=== PATIENT | male | born 1975 ===

== ENCOUNTER 2022-12-09 23:38 | Emergency (ER) | payer SELFPAY ==
[~2022-12-09] VITALS: Ht 170.2 cm; Wt 100.0 kg
[2022-12-10] MEDS ORDERED: IBUPROFEN TABLET 200 MG TAB PO ONE
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
[2022-12-10 02:15] LABS: BASOPHILS % (AUTO) 0 % (0-10); EOSINOPHILS # (AUTO) 0.3 10^3/uL (0.0-0.3); EOSINOPHILS % (AUTO) 2 % (0-10); HEMATOCRIT 40 % (40-54); HEMOGLOBIN 13.9 g/dL (13.3-17.7); LYMPHOCYTES # (AUTO) 2.4 10^3/uL (1.0-4.0); LYMPHOCYTES % (AUTO) 23 % (12-44); MEAN CORPUSCULAR HEMOGLOBIN 30 pg (25-34); MEAN CORPUSCULAR HGB CONC 35 g/dL (32-36); MEAN CORPUSCULAR VOLUME 86 fL (80-99); MEAN PLATELET VOLUME 9.1 fL (9.0-12.2); MONOCYTES # (AUTO) 0.7 10^3/uL (0.0-1.0); MONOCYTES % (AUTO) 7 % (0-12); NEUTROPHILS # (AUTO) 7.1 10^3/uL (1.8-7.8); NEUTROPHILS % (AUTO) 67 % (42-75); PLATELET COUNT 193 10^3/uL (130-400); WHITE BLOOD COUNT 10.5 10^3/uL (4.3-11.0)
[2022-12-10 02:26] LABS: ALBUMIN 4.3 GM/DL (3.2-4.5); POTASSIUM 3.8 MMOL/L (3.6-5.0)
[2022-12-10 02:27] LABS: CALCIUM 9.1 MG/DL (8.5-10.1)
[2022-12-10 02:28] LABS: INR 1.1 (0.8-1.4); PROTHROMBIN TIME PATIENT 14.6 SEC (12.2-14.7); TOTAL PROTEIN 7.3 GM/DL (6.4-8.2)
[2022-12-10 02:30] LABS: BILIRUBIN,TOTAL 0.8 MG/DL (0.1-1.0)
[2022-12-10 02:32] LABS: CREATININE SERUM 0.72 MG/DL (0.60-1.30)
[2022-12-10] MEDS ORDERED: cefTRIAXone 1 GM PRE-MIX 50 ML IV STA (02:51)
[2022-12-10] MEDS ORDERED: RT-ALBUTEROL HFA 8.5 GM INHALER IH STA (02:51)
[2022-12-10] MEDS ORDERED: AZITHROMYCIN 250 MG TAB (ZITHROMAX) PO STA (02:51)
[2022-12-10] MEDS ORDERED: AZIT250T12 PO (03:03)
[2022-12-10] MEDS ORDERED: CEFD300C3 PO (03:03)
[2022-12-10 04:15] VITALS: BP 147/92
--- NOTE | 2022-12-10 06:04 | Diagnostic Imaging Report ---
INDICATION: Cough and fever. PA and lateral chest. FINDINGS: There is cardiomegaly with pulmonary vascular congestion. There are bilateral perihilar alveolar infiltrates with some focal consolidation in the right upper lobe. This could be pulmonary edema but pneumonia cannot be excluded. IMPRESSION: Congestive heart failure with probable superimposed pneumonia on the right. Dictated by: Dictated on workstation # [id number]
== END 2022-12-10 04:15 | disposition home or self-care (01) ==
LOC: EDUNIT# 23:38 → ER 23:42
DX: J18.9 Pneumonia, unspecified organism (principal); Z20.822 Contact with and (suspected) exposure to COVID-19
CPT/HCPCS: 36415; 71046; 80053; 83605; 83880; 85025; 85610; 85730; 86141; 87040; 87636

== ENCOUNTER 2022-12-23 20:14 | Emergency (ER) | payer SELFPAY ==
[~2022-12-23] VITALS: Ht 167.7 cm; Wt 103.4 kg
[~2022-12-23 20:14] MED LIST: AZIT250T12 PO; CEFD300C3 PO
[2022-12-23] MEDS ORDERED: NS IV 1000 ML 1,000 ML IV STA (20:44)
--- NOTE | 2022-12-23 20:48 | ED Cough/URI ---
General Chief Complaint: Respiratory Problems Stated Complaint: PNEUMONIA Nursing Triage Note: PT AMB TO RM 10, [facility] CONTACTED FOR TRIAGE. PER [facility] PT REPORTS HE WAS DX W PNA ON 12/09/22, STATES X3 DAYS HE HAS BEEN EXPERIENCING SOA W EXERTION, DIFFICULTY COUGHING, INABILITY TO LIE FLAT, AND CP. PT A&OX4. Source: patient Exam Limitations: no limitations History of Present Illness Date Seen by Provider: Dec 23, 2022 Time Seen by Provider: 20:47 Allergies and Home Medications Allergies Coded Allergies: No Known Drug Allergies (Unverified , 12/09/22) Patient Home Medication List Home Medication List Reviewed: Yes Albuterol Sulfate (Ventolin Hfa) 1 Puff Puff, 2 PUFF INH Q4H Prescribed by: JOHNNY BURKS on 12/23/222301 Amoxicillin/Potassium Clav (Amox Tr-K Clv 875-125 mg Tab) 875 Mg-125 Mg Tablet, 1 EACH PO BID Prescribed by: JOHNNY BURKS on 12/23/222301 Azithromycin (Azithromycin) 250 Mg Tablet, 250 MG PO DAILY Prescribed by: GLORIA VALENTINE on 12/10/22302 Azithromycin (Azithromycin) 250 Mg Tablet, 250 MG PO DAILY Prescribed by: JOHNNY BURKS on 12/23/222301 Cefdinir (Cefdinir) 300 Mg Capsule, 300 MG PO BID Prescribed by: GLORIA VALENTINE on 12/10/22302 Review of Systems Review of Systems Constitutional: chills; No diaphoresis; fever, malaise, weakness EENTM: No ear pain, No blurred vision, No hoarseness, No mouth pain, No mouth swelling Respiratory: cough, short of breath Cardiovascular: chest pain; No edema Gastrointestinal: No abdominal pain, No diarrhea, No nausea, No vomiting Genitourinary: No decreased output, No discharge Musculoskeletal: No back pain, No joint pain Skin: No change in color, No change in hair/nails All Other Systems Reviewed Negative Unless Noted: Yes Past Wxllewa-Vhscab-Iuniwu Hx Patient Social History Tobacco Use?: Yes Tobacco type used: Cigarettes Smoking Status: Current Someday Smoker Use of E-Cig and/or Vaping dev: No Substance use?: No Alcohol Use?: Yes Alcohol type: Beer Alcohol Frequency: Once in a while Immunizations Up To Date First/Initial COVID19 Vaccinat: 2020 Second COVID19 Vaccination Fredis: 2020 Third COVID19 Vaccination Date: NONE 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 oz. kg; 36.00 BMI Method: General Appearance: WD/WN, no apparent distress Eyes: Bilateral Eye Normal Inspection, Bilateral Eye PERRL, Bilateral Eye EOMI HEENT: PERRL/EOMI, normal ENT inspection, TMs normal, pharynx normal Neck: non-tender, full range of motion, supple Respiratory: lungs clear, normal breath sounds, no respiratory distress, no accessory muscle use, other (Anterior chest wall tenderness.) Cardiovascular: regular rate, rhythm, no edema, no gallop, no JVD Gastrointestinal: normal bowel sounds, non tender, soft, no organomegaly, no pulsatile mass Extremities: normal range of motion, non-tender, normal inspection, no pedal edema, no calf tenderness Neurologic/Psychiatric: aix administrator II-XII nml as tested, no motor/sensory deficits, alert, normal mood/affect, oriented x 3 Skin: normal color, warm/dry Progress/Results/Core Measures Suspected Sepsis SIRS Temperature: Pulse: 102 Respiratory Rate: 20 Laboratory Tests 12/23/22 20:35: White Blood Count 7.3 Blood Pressure 149 /112 Mean: 124 Laboratory Tests 12/23/22 20:35: Creatinine 0.79, Platelet Count 231, Total Bilirubin 0.6 Results/Orders Lab Results Laboratory Tests Test 12/23/22 20:35 12/23/22 22:51 Range/Units White Blood Count 7.3 4.3-11.0 10^3/uL Red Blood Count 4.29 L 4.30-5.52 10^6/uL Hemoglobin 12.8 L 13.3-17.7 g/dL Hematocrit 37 L 40-54 % Mean Corpuscular Volume 86 80-99 fL Mean Corpuscular Hemoglobin 30 25-34 pg Mean Corpuscular Hemoglobin Concent 35 32-36 g/dL Red Cell Distribution Width 12.4 10.0-14.5 % Platelet Count 231 130-400 10^3/uL Mean Platelet Volume 9.5 9.0-12.2 fL Immature Granulocyte % (Auto) 0 % Neutrophils (%) (Auto) 68 42-75 % Lymphocytes (%) (Auto) 23 12-44 % Monocytes (%) (Auto) 7 0-12 % Eosinophils (%) (Auto) 3 0-10 % Basophils (%) (Auto) 0 0-10 % Neutrophils # (Auto) 4.9 1.8-7.8 10^3/uL Lymphocytes # (Auto) 1.6 1.0-4.0 10^3/uL Monocytes # (Auto) 0.5 0.0-1.0 10^3/uL Eosinophils # (Auto) 0.2 0.0-0.3 10^3/uL Basophils # (Auto) 0.0 0.0-0.1 10^3/uL Immature Granulocyte # (Auto) 0.0 0.0-0.1 10^3/uL Sodium Level 138 135-145 MMOL/L Potassium Level 3.7 3.6-5.0 MMOL/L Chloride Level 108 H 98-107 MMOL/L Carbon Dioxide Level 19 L 21-32 MMOL/L Anion Gap 11 5-14 MMOL/L Blood Urea Nitrogen 13 7-18 MG/DL Creatinine 0.79 0.60-1.30 MG/DL Estimat Glomerular Filtration Rate 112 BUN/Creatinine Ratio 16 Glucose Level 309 H 70-105 MG/DL Calcium Level 8.7 8.5-10.1 MG/DL Corrected Calcium 8.8 8.5-10.1 MG/DL Total Bilirubin 0.6 0.1-1.0 MG/DL Aspartate Amino Transf (AST/SGOT) 27 5-34 U/L Alanine Aminotransferase (ALT/SGPT) 27 0-55 U/L Alkaline Phosphatase 107 40-136 U/L Troponin I < 0.028 <0.028 NG/ML C-Reactive Protein High Sensitivity 1.51 H 0.00-0.50 MG/DL B-Type Natriuretic Peptide 295.6 H <100.0 PG/ML Total Protein 7.0 6.4-8.2 GM/DL Albumin 3.9 3.2-4.5 GM/DL Influenza Type A (RT-PCR) Not Detected Not Detecte Influenza Type B (RT-PCR) Not Detected Not Detecte SARS-CoV-2 RNA (RT-PCR) Not Detected Not Detecte Glucometer 259 H 70-110 MG/DL My Orders Orders - JULES ERICKSON PA Cbc With Automated Diff (12/23/22 20:44) Comprehensive Metabolic Panel (12/23/22 20:44) Bnp [place] (12/23/22 20:44) Troponin I Boundary (12/23/22 20:44) Ekg Tracing (12/23/22 20:44) Covid 19 Inhouse Test (12/23/22 20:44) Influenza A And B By Pcr (12/23/22 20:44) Chest 1 View, Ap/Pa Only (12/23/22 20:44) Hs C Reactive Protein (12/23/22 20:44) Ns Iv 1000 Ml (Sodium Chloride 0.9%) (12/23/22 20:44) Ct Angio Chest W (R/O Pe) (12/23/22:23) Iohexol Injection (Omnipaque 350 Mg/Ml 1 (12/23/22 21:30) Received Contrast (Hold Metformin- Contr (12/23/22 21:30) Ns (Ivpb) (Sodium Chloride 0.9% Ivpb Bag (12/23/22 21:30) Morphine Injection (Morphine Injection (12/23/22 22:31) Albuterol/Ipra Inhalation Soln (Duoneb I (12/23/22 22:31) Ceftriaxone 1 Gm Pre-Mix (Rocephin 1 Gm (12/23/22 22:48) Azithromycin Tablet (Zithromax Tablet) (12/23/22 22:57) Ekg Tracing (12/23/22 21:09) Medications Given in ED Vital Signs/I&O 12/23/22 12/23/22 20:23 23:40 Temp 36.6 37.0 Pulse 102 107 Resp 20 24 B/P (MAP) 149/112 (124) 144/105 Pulse Ox 96 94 O2 Delivery Room Air Room Air Capillary Refill : Less Than 3 Seconds Blood Pressure Mean: 124 ECG Comment Sinus tachycardia, 100 bpm, QRS duration 117 MS, QTc 465 MS. Incomplete right bundle branch block, moderate T wave in reality and V3 V4. Departure Communication (PCP) Reviewed previous ER visits, H&P, lab testing. Patient was seen here December 09 diagnosed with pneumonia. Patient found to have a slight elevated BNP 196. No history of CHF, coronary artery disease. Patient with similar symptoms over the past 3 days. States this feels very similar to when he had pneumonia. Was discharged with cefdinir and azithromycin at his last visit with improvement of his pneumonia. Denies of any recent travels. Denies night sweats, weight loss. Denies of any leg swelling. Reports substernal chest discomfort with pain on palpation for the past three days. This appears to be worse with the cough. Patient was slightly hypertensive 114/102. No history of hypertension according to patient. He was afebrile. Slightly tachycardic at 102. CBC, CMP, troponin, BNP, chest x-ray, EKG. No history of PE. Differential diagnosis of pneumonia, viral syndrome, coronary artery disease, CHF. EKG sinus tachycardia. Patient is afebrile with normal white blood count. Patient was not tachypneic or hypoxic. did not meet SIRS criteria. Does report some shortness of breath with walking and lying down. No known cardiac history. Denies history of CHF or coronary artery disease. During lung auscultation, I did not note any significant wheezing but decreased diminished breath sounds. Patient was given nebulizer DuoNeb breathing treatment with improvement of his chest pain and lung sounds. Patient was given a dose of morphine for his chest pain as well. CBC unremarkable. Chemistry showed a blood sugar 309. Patient was started on a liter of fluid. Improvement with an Accu-Chek of 259. No known history of diabetes. Chest x-ray concerning for cardiomegaly with moderate congesting suggesting heart failure. Troponin negative. BNP slightly elevated 295. Slight increase from December 09. Bilateral consolidations concerning for pneumonia. It was recommended further evaluation with CT scan because of similar pattern on December 09. Due to the tachycardia, CT angio of the chest was ordered to rule out PE versus pneumonia versus pleural effusion. CT angio of the chest shows extensive 5 lobe alveolar infiltrate. Matted type lymphadenopathy versus inflammatory process in the hilum and subcranial region. Borderline cardiomegaly with small pericardial effusion. Negative for PE, aneurysm. gallbladder is nondistended but does appear to have wall thickening. he has no right upper quadrant tenderness. Patient has no right upper quadrant tenderness. patient appears better after the breathing treatment. Due to the extensive pneumonia, slightly tachycardic and oxygen between 93 to 95% discussed observation with IV antibiotics. Patient states he would rather go home. I do feel patient has some mild CHF component due to uncontrolled hypertension versus pneumonia. Patient was not started on a diuretic. Recommend cardiology outpatient follow-up. Patient will be discharged with Augmentin and azithromycin. Patient was given dose of Rocephin here. Provided albuterol inhaler. Recommend follow-up with your PCP for blood sugar and elevated blood pressure reading. no specific lower extremity swelling noted on exam suggesting CHF exacerbation. No pitting edema. Patient states he feels better and would rather go home. Discussed if symptoms worsen such as increased cough, shortness of breath, chest pain to return back to ED for further evaluation for the pne umonia. If pneumonia progresses may need further evaluation with pulmonology, sputum production. Impression Primary Impression: Pneumonia Additional Impressions: Cardiomegaly Hyperglycemia Disposition: HOME, SELF-CARE Condition: Stable Departure-Patient Inst. Decision time for Depature: 23:00 Referrals: [facility] [place],LOCAL PHYSICIAN (PCP) Primary Care Physician Patient Instructions: Pneumonia, Child (DC) Add. Discharge Instructions: Take antibiotics as prescribed. Recommend following up with your primary care physician 2 to 3 days for reevaluation. Recommend following up with cardiology for further evaluation of the cardiomegaly. Recommend follow-up with elevated blood sugar. Recommend following up with blood pressure. If any worsening shortness of breath or chest pain to return back to ED All discharge instructions reviewed with patient and/or family. Voiced understanding. Scripts Azithromycin (Azithromycin) 250 Mg Tablet 250 MG PO DAILY for 4 Days, #4 TAB Prov: JULES ERICKSON 12/23/22 Albuterol Sulfate (VENTOLIN HFA) 1 Puff Puff 2 PUFF INH Q4H, #1 EA 1 PUFF = 90 MCG Prov: JULES ERICKSON 12/23/22 Amoxicillin/Potassium Clav (Amox Tr-K Clv 875-125 mg Tab) 875 Mg-125 Mg Tablet 1 EACH PO BID for 7 Days, #14 TAB Prov: JULES ERICKSON 12/23/22 Work/School Note: Work Release Form Date Seen in the Emergency Department: Dec 23, 2022 Return to Work: Dec 28, 2022 JULES ERICKSON Dec 23, 2022 20:47
[2022-12-23 21:00] LABS: BASOPHILS % (AUTO) 0 % (0-10); EOSINOPHILS # (AUTO) 0.2 10^3/uL (0.0-0.3); EOSINOPHILS % (AUTO) 3 % (0-10); HEMATOCRIT 37 % (40-54); HEMOGLOBIN 12.8 g/dL (13.3-17.7); LYMPHOCYTES # (AUTO) 1.6 10^3/uL (1.0-4.0); LYMPHOCYTES % (AUTO) 23 % (12-44); MEAN CORPUSCULAR HEMOGLOBIN 30 pg (25-34); MEAN CORPUSCULAR HGB CONC 35 g/dL (32-36); MEAN CORPUSCULAR VOLUME 86 fL (80-99); MEAN PLATELET VOLUME 9.5 fL (9.0-12.2); MONOCYTES # (AUTO) 0.5 10^3/uL (0.0-1.0); MONOCYTES % (AUTO) 7 % (0-12); NEUTROPHILS # (AUTO) 4.9 10^3/uL (1.8-7.8); NEUTROPHILS % (AUTO) 68 % (42-75); PLATELET COUNT 231 10^3/uL (130-400); WHITE BLOOD COUNT 7.3 10^3/uL (4.3-11.0)
--- NOTE | 2022-12-23 21:03 | Diagnostic Imaging Report ---
INDICATION: 47-year-old male with shortness of breath on exertion. COMPARISONS: 12/10/2022. FINDINGS: Single view chest shows cardiomegaly with moderate central venous congestion. Again demonstrated are two separate consolidated densities in the right lung. Some patchy left lung infiltrates are seen. Soft tissues and bony thorax are grossly normal. Film is underpenetrated. IMPRESSION: 1. Cardiomegaly with moderate congestive heart failure. 2. There are two separate consolidated densities in the right lung in similar pattern to the previous study. A CT chest is recommended as follow-up. Dictated by: Dictated on workstation # [id number]
[2022-12-23 21:04] LABS: ALBUMIN 3.9 GM/DL (3.2-4.5); CHLORIDE 108 MMOL/L (98-107); POTASSIUM 3.7 MMOL/L (3.6-5.0); SODIUM 138 MMOL/L (135-145)
[2022-12-23 21:05] LABS: CALCIUM 8.7 MG/DL (8.5-10.1)
[2022-12-23 21:07] LABS: GLUCOSE 309 MG/DL (70-105)
[2022-12-23 21:08] LABS: BILIRUBIN,TOTAL 0.6 MG/DL (0.1-1.0); CARBON DIOXIDE 19 MMOL/L (21-32)
[2022-12-23 21:10] LABS: ALKALINE PHOSPHATASE 107 U/L (40-136); CREATININE SERUM 0.79 MG/DL (0.60-1.30); GFR ESTIMATED 112
[2022-12-23 21:12] LABS: BUN/CREATININE RATIO 16
[2022-12-23 21:13] LABS: ALANINE AMINOTRANSFERASE 27 U/L (0-55)
[2022-12-23] MEDS ORDERED: NS 100 ML (IVPB) BAG IV ONE (21:30)
[2022-12-23] MEDS ORDERED: IOHEXOL 350 MG/ML 100 ML (OMNIPAQUE 350) VIAL IV ONE (21:30)
[2022-12-23] MEDS ORDERED: HOLD METFORMIN - RECEIVED CONTRAST 20 ML VIAL IV SCH (21:30)
[2022-12-23] MEDS ORDERED: RT-ALBUTEROL/IPRATROPIUM 3 ML (DUONEB) VIAL ONE (22:31)
[2022-12-23] MEDS ORDERED: morphine INJ 4 MG/ML 1 ML (VIAL/SYRINGE) ONE (22:31)
--- NOTE | 2022-12-23 22:42 | Diagnostic Imaging Report ---
INDICATION: 47-year-old male with chest pain and shortness of breath. COMPARISONS: None. FINDINGS: There is no axillary adenopathy. There appears to be some matted hilar lymphadenopathy also extending into the subcarinal region. Cardiac contour is borderline enlarged. There is a small pericardial effusion. Thoracic aortic contour is also normal with no evidence of aneurysm. There is normal arch origin of the great vessels. Pulmonary outflow tract as well as the right and left pulmonary arteries, their segmental and subsegmental branches are patent with no evidence of intraluminal thrombus to suggest a pulmonary embolism. There are extensive five lobe alveolar consolidations. A few of these show a slight nodular pattern. There is a small pleural effusion in the right minor fissure. There is no pneumothorax. Limited assessment of the abdomen shows slight gallbladder wall thickening with the gallbladder not distended. Spleen and GE junction are normal. Stomach is unremarkable. The visualized kidneys, adrenals and pancreas are also grossly normal. IMPRESSION: 1. Extensive five lobe predominant alveolar infiltrates, more prominent on the right. 2. There is some matted type lymphadenopathy versus an inflammatory process in the hilum and subcarinal region. 3. Borderline cardiomegaly with a small pericardial effusion. 4. No CT angiographic evidence for aortic aneurysm or pulmonary embolism. 5. The gallbladder is nondistended however there does appear to be some gallbladder wall thickening. This may be due to hepatic dysfunction, less likely acalculus cholecystitis. Additional nonemergent findings as described above. Dictated by: Dictated on workstation # [id number]
[2022-12-23] MEDS ORDERED: cefTRIAXone 1 GM PRE-MIX 50 ML IV STA (22:48)
[2022-12-23] MEDS ORDERED: AZITHROMYCIN 250 MG TAB (ZITHROMAX) PO STA (22:57)
[2022-12-23] MEDS ORDERED: AMOX1TAB12 PO (23:02)
[2022-12-23] MEDS ORDERED: RT-ALBUINH INH (23:02)
[2022-12-23] MEDS ORDERED: AZIT250T12 PO (23:02)
[2022-12-23 23:40] VITALS: BP 144/105
== END 2022-12-23 23:40 | disposition home or self-care (01) ==
LOC: EDUNIT# 20:14 → ER 20:16
DX: J18.9 Pneumonia, unspecified organism (principal); I51.7 Cardiomegaly; E11.65 Type 2 diabetes mellitus with hyperglycemia; R79.89 Other specified abnormal findings of blood chemistry; F17.210 Nicotine dependence, cigarettes, uncomplicated; Z20.822 Contact with and (suspected) exposure to COVID-19
CPT/HCPCS: 36415; 71045; 71275; 80053; 82947; 83880; 84484; 85025; 86141; 87636; 93005

== ENCOUNTER 2022-12-25 19:16 | Observation (INO) | payer SELFPAY ==
[~2022-12-25] VITALS: Ht 170 cm; Wt 107.0 kg
[~2022-12-25 19:16] MED LIST changes: +AMOX1TAB12 PO; +RT-ALBUINH INH
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
[2022-12-25] MEDS ORDERED: ANTACID SUSP 30 ML UDC (MYLANTA) PO ONE (20:00)
[2022-12-25] MEDS ORDERED: ONDANSETRON 4 MG/2 ML (SDV) Z0FRAN IVP ONE (20:00)
[2022-12-25] MEDS ORDERED: LIDOCAINE 2% VISCOUS 15 ML UDC PO ONE (20:00)
[2022-12-25 20:05] LABS: BASOPHILS % (AUTO) 0 % (0-10); EOSINOPHILS # (AUTO) 0.2 10^3/uL (0.0-0.3); EOSINOPHILS % (AUTO) 2 % (0-10); HEMATOCRIT 39 % (40-54); HEMOGLOBIN 13.5 g/dL (13.3-17.7); LYMPHOCYTES # (AUTO) 1.9 10^3/uL (1.0-4.0); LYMPHOCYTES % (AUTO) 24 % (12-44); MEAN CORPUSCULAR HEMOGLOBIN 30 pg (25-34); MEAN CORPUSCULAR HGB CONC 35 g/dL (32-36); MEAN CORPUSCULAR VOLUME 86 fL (80-99); MEAN PLATELET VOLUME 9.1 fL (9.0-12.2); MONOCYTES # (AUTO) 0.5 10^3/uL (0.0-1.0); MONOCYTES % (AUTO) 7 % (0-12); NEUTROPHILS # (AUTO) 5.2 10^3/uL (1.8-7.8); NEUTROPHILS % (AUTO) 67 % (42-75); PLATELET COUNT 215 10^3/uL (130-400); WHITE BLOOD COUNT 7.8 10^3/uL (4.3-11.0)
--- NOTE | 2022-12-25 20:10 | Diagnostic Imaging Report ---
EXAMINATION: Chest 2 view. HISTORY: SOA, Orthopnea. COMPARISON: 12/10/2022. FINDINGS: Stable enlargement of the cardiac silhouette. Persistent perihilar interstitial opacities seen throughout both lungs. No significant pleural effusion or pneumothorax. Degenerative changes of the thoracic spine. Osseous structures are otherwise intact. IMPRESSION: Persistent perihilar interstitial opacities throughout both lungs which can be seen with pulmonary edema or pneumonia. Dictated by: Dictated on workstation # [id number]
[2022-12-25 20:26] LABS: ALBUMIN 3.8 GM/DL (3.2-4.5); BILIRUBIN,TOTAL 0.6 MG/DL (0.1-1.0); CALCIUM 8.9 MG/DL (8.5-10.1); CREATININE SERUM 0.74 MG/DL (0.60-1.30); MAGNESIUM 1.9 MG/DL (1.6-2.4); POTASSIUM 3.7 MMOL/L (3.6-5.0); TOTAL PROTEIN 5.9 GM/DL (6.4-8.2)
[2022-12-25 20:30] LABS: ERYTHROCYTE SEDIMENTATION RATE 21 MM/HR (0-15)
[2022-12-25] MEDS ORDERED: PANTOPRAZOLE 40 MG (PROTONIX) TAB PO ONE (21:15)
[2022-12-25] MEDS ORDERED: KCL 10 MEQ TAB (MICRO K) PO ONE (21:15)
[2022-12-25] MEDS ORDERED: FUROSEMIDE 40 MG/4 ML INJ (LASIX) IVP ONE (21:15)
[2022-12-25 21:45] LABS: INR 1.2 (0.8-1.4); PROTHROMBIN TIME PATIENT 15.7 SEC (12.2-14.7)
[2022-12-25 22:23] VITALS: BP 149/103
[2022-12-25 22:34] LABS: AMPHETAMINE SCREEN, URINE NEGATIVE (NEGATIVE); BARBITURATE SCREEN URINE NEGATIVE (NEGATIVE); BENZODIAZEPINES SCREEN URINE NEGATIVE (NEGATIVE); CANNABINOID SCREEN, URINE NEGATIVE (NEGATIVE); COCAINE SCREEN URINE NEGATIVE (NEGATIVE); METHADONE STAT NEGATIVE (NEGATIVE); OPIATE SCREEN URINE NEGATIVE (NEGATIVE); OXYCODONE STAT NEGATIVE (NEGATIVE); PROPOXYPHENE STAT NEGATIVE (NEGATIVE); TRICYCLIC ANTIDEPRESSANTS SCRE NEGATIVE (NEGATIVE)
[2022-12-25] MEDS ORDERED: ONDANSETRON 4 MG/2 ML (SDV) Z0FRAN IV PRN (22:45)
[2022-12-25] MEDS ORDERED: RT-ALBUTEROL HFA 8.5 GM INHALER IH PRN (22:45)
[2022-12-25] MEDS ORDERED: PATIENT MAY USE OWN MEDS, ALL MC SCH (22:45)
[2022-12-25 23:51] VITALS: BP 129/91
[2022-12-26] MEDS ORDERED: METF-478 PO (03:02)
[2022-12-26 03:57] VITALS: BP 131/89
[2022-12-26] MEDS: PANTOPRAZOLE 40 MG (PROTONIX) TAB PO SCH (05:17)
[2022-12-26] MEDS: CATHETER FLUSH 10 ML SYR IVP SCH ×3 (05:17→21:15)
--- NOTE | 2022-12-26 05:34 | History & Physical-Hospitalist ---
History of Present Illness HPI/Chief Complaint CC: Dyspnea HPI: This is a 47yoWM with minimal PMH who presented to the ER 4 times in past few weeks with dyspnea so he was admitted and placed in observation and Dr Quintero saw him in consultation and evaluated and ECHO which revealed EF 25% and noted elevated troponin so he was brought to chemical laboratory technician. American and Slovak used to communicate with patient and his . Source: patient, family Exam Limitations: language barrier Date Seen 12/26/22 Time Seen by a Provider: 11:00 Attending Physician Mel Elliott Aprn PCP Admitting Physician: Manisha West DO Attending Physician: Manisha West DO Referring Physician Date of Admission Dec 25, 2022 at 21:31 Home Medications & Allergies Home Medications Reviewed patient Home Medication Reconciliation performed by pharmacy medication reconciliations truck technician and/or nursing. Patients Allergies have been reviewed. Allergies Allergies Coded Allergies No Known Drug Allergies (Unverified12/09/22) Past Byldweb-Yrglih-Uptvyx Hx Patient Social History Marrital Status: Employed/Student: employed Tobacco Use?: No Tobacco type used: Cigarettes Smoking Status: Former Smoker Use of E-Cig and/or Vaping dev: No Substance use?: No Alcohol Use?: Yes Alcohol type: Beer Alcohol Frequency: Once in a while Pt feels they are or have been: No Immunizations Up To Date First/Initial COVID19 Vaccinat: 2020 Second COVID19 Vaccination Fredis: 2020 Tetanus Booster (TDap): Unknown Hepatitis A: No Hepatitis B: No Current Status Advance Directives: No Communicates: Verbally Primary Language: American Preferred Spoken Language: American Is interpretation needed?: No Implanted or Applied Medical D: None Past Medical History Pneumonia Diabetes, Non-Insulin dep Review of Systems Constitutional: see HPI Respiratory: dyspnea on exertion Physical Exam Physical Exam Vital Signs Vital Signs - First Documented 12/25/22 12/25/22 12/26/22 19:20 22:06 08:00 Temp 36.8 Pulse 102 Resp 22 B/P (MAP) 158/118 (131) Pulse Ox 94 O2 Delivery Room Air O2 Flow Rate 0.00 Capillary Refill : Height, Weight, BMI Height: '" Weight: lbs. oz. kg; 37.02 BMI Method: General Appearance: No Apparent Distress Eyes: Right Eye Normal Inspection, Right Eye PERRL HEENT: PERRL/EOMI, Normal ENT Inspection, Pharynx Normal, Moist Mucous Membranes Neck: Full Range of Motion, Normal Inspection, Non Tender Respiratory: Chest Non Tender, Lungs Clear, Normal Breath Sounds, No Accessory Muscle Use, No Respiratory Distress Cardiovascular: Regular Rate, Rhythm, No Edema, No Gallop, No JVD, No Murmur, Normal Peripheral Pulses Gastrointestinal: Normal Bowel Sounds, No Organomegaly, No Pulsatile Mass, Non Tender, Soft Back: Normal Inspection, No CVA Tenderness, No Vertebral Tenderness Extremity: Normal Capillary Refill, Normal Inspection, Normal Range of Motion, Non Tender, No Calf Tenderness, No Pedal Edema Neurologic/Psychiatric: Alert, Oriented x3, No Motor/Sensory Deficits, Normal Mood/Affect Skin: Normal Color, Warm/Dry Lymphatic: No Adenopathy Results Results/Procedures Labs Laboratory Tests 12/25/22 19:58 12/26/22 05:47 Patient resulted labs reviewed. Assessment/Plan Admission Diagnosis Assessment: Dyspnea Elevated troponin Former smoker Obesity Plan: Cath today Admission Status: Observation MANISHA WEST DO Dec 26, 2022 05:33
[2022-12-26 06:00] LABS: BASOPHILS % (AUTO) 0 % (0-10); EOSINOPHILS # (AUTO) 0.2 10^3/uL (0.0-0.3); EOSINOPHILS % (AUTO) 3 % (0-10); HEMATOCRIT 39 % (40-54); HEMOGLOBIN 13.3 g/dL (13.3-17.7); LYMPHOCYTES % (AUTO) 22 % (12-44); MEAN CORPUSCULAR HEMOGLOBIN 30 pg (25-34); MEAN CORPUSCULAR HGB CONC 35 g/dL (32-36); MEAN CORPUSCULAR VOLUME 86 fL (80-99); MEAN PLATELET VOLUME 9.2 fL (9.0-12.2); MONOCYTES # (AUTO) 0.6 10^3/uL (0.0-1.0); MONOCYTES % (AUTO) 7 % (0-12); NEUTROPHILS # (AUTO) 5.9 10^3/uL (1.8-7.8); NEUTROPHILS % (AUTO) 68 % (42-75); PLATELET COUNT 240 10^3/uL (130-400); WHITE BLOOD COUNT 8.8 10^3/uL (4.3-11.0)
[2022-12-26 06:16] LABS: CREATININE SERUM 0.72 MG/DL (0.60-1.30)
[2022-12-26 08:04] VITALS: BP 134/91
--- NOTE | 2022-12-26 08:05 | Diagnostic Imaging Report ---
INDICATION: Shortness of air and chest pain. Time of Exam: 5:42 AM Correlation is made with prior chest one day earlier. Heart is enlarged but stable. Bilateral infiltrates, greater on the right persist and show no real change. There is no effusion or pneumothorax identified. IMPRESSION: No significant change in bilateral infiltrates, right greater when compared to examination one day earlier. Dictated by: Dictated on workstation # [id number]
[2022-12-26] MEDS: AZITHROMYCIN 250 MG TAB (ZITHROMAX) PO SCH (08:39)
[2022-12-26] MEDS: AUGMENTIN 875 MG TAB (AMOXICILLIN/CLAVULANATE) PO SCH ×2 (08:39→21:14)
--- NOTE | 2022-12-26 10:29 | Diagnostic Imaging Report ---
PROCEDURE: US Gallbladder. TECHNIQUE: Multiple real-time grayscale images were obtained over the right upper quadrant in various projections. INDICATION: Pain COMPARISON: None available. FINDINGS: Liver is borderline enlarged measuring 20 cm in length. Liver demonstrates diffusely increased echogenicity with poor acoustic transmission without focal hepatic mass. Normal direction of flow in the main portal vein. The gallbladder is unremarkable. The common bile duct is within normal limits measuring 0.5 cm. The pancreas and abdominal aorta are not well visualized secondary to overlying bowel gas. The stress portion of the inferior vena cava are unremarkable. The right kidney is unremarkable without hydronephrosis. No significant free fluid. Negative sonographic Yan sign. IMPRESSION: Mild hepatomegaly with associated fatty infiltration of the liver. Otherwise, unremarkable examination within the limits of the exam. Dictated by: Dictated on workstation # [id number]
--- NOTE | 2022-12-26 11:12 | Consultation-Cardiology ---
HPI-Cardiology Cardiology Consultation Date of Consultation 12/26/22 Date of Admission Time Seen by Provider: 11:07 Indication: Shortness of breath HPI 47-year-old gentleman with history of diabetes mellitus. Occasional alcohol use. Has been returning to the emergency room for the past month, has 3 visits to the ER for increasing dyspnea and orthopnea. Having episodes of PND. He was admitted with moderately elevated BNP. Denied any chest pain. No palpitation. No syncope or near syncopal episodes Home Medications & Allergies Allergies: Coded Allergies: No Known Drug Allergies (Unverified , 12/09/22) Home Medication List Reviewed: Yes [id number] Hx Patient Social History Marital Status: Employed/Student: employed Smoking Status: Former Smoker Have you traveled recently?: No Alcohol Use?: Yes Past Medical History Discussed below Family Medical History Significant Family History: No Pertinent Family Hx Review of Systems-General Review of Systems Constitutional: no symptoms reported EENTM: no symptoms reported Respiratory: see HPI; No cough; dyspnea on exertion; No hemoptysis; orthopnea; No phlegm; short of breath; No stridor, No wheezing, No other Cardiovascular: see HPI; No chest pain, No edema, No Hx of Intervention, No palpitations, No syncope, No vascular heart diseas, No other Gastrointestinal: see HPI Genitourinary: no symptoms reported Musculoskeletal: no symptoms reported Skin: no symptoms reported Psychiatric/Neurological: See HPI Reviewed Test Results Reviewed Test Results Lab Laboratory Tests Test 12/25/22 19:58 12/25/22 22:05 12/26/22 05:47 Range/Units White Blood Count 7.8 8.8 4.3-11.0 10^3/uL Red Blood Count 4.53 4.47 4.30-5.52 10^6/uL Hemoglobin 13.5 13.3 13.3-17.7 g/dL Hematocrit 39 L 39 L 40-54 % Mean Corpuscular Volume 86 86 80-99 fL Mean Corpuscular Hemoglobin 30 30 25-34 pg Mean Corpuscular Hemoglobin Concent 35 35 32-36 g/dL Red Cell Distribution Width 12.2 12.4 10.0-14.5 % Platelet Count 215 240 130-400 10^3/uL Mean Platelet Volume 9.1 9.2 9.0-12.2 fL Immature Granulocyte % (Auto) 0 1 % Neutrophils (%) (Auto) 67 68 42-75 % Lymphocytes (%) (Auto) 24 22 12-44 % Monocytes (%) (Auto) 7 7 0-12 % Eosinophils (%) (Auto) 2 3 0-10 % Basophils (%) (Auto) 0 0 0-10 % Neutrophils # (Auto) 5.2 5.9 1.8-7.8 10^3/uL Lymphocytes # (Auto) 1.9 2.0 1.0-4.0 10^3/uL Monocytes # (Auto) 0.5 0.6 0.0-1.0 10^3/uL Eosinophils # (Auto) 0.2 0.2 0.0-0.3 10^3/uL Basophils # (Auto) 0.0 0.0 0.0-0.1 10^3/uL Immature Granulocyte # (Auto) 0.0 0.0 0.0-0.1 10^3/uL Erythrocyte Sedimentation Rate 21 H 0-15 MM/HR Prothrombin Time 15.7 H 12.2-14.7 SEC INR Comment 1.2 0.8-1.4 Activated Partial Thromboplast Time 32 24-35 SEC Sodium Level 139 139 135-145 MMOL/L Potassium Level 3.7 4.0 3.6-5.0 MMOL/L Chloride Level 106 107 98-107 MMOL/L Carbon Dioxide Level 21 23 21-32 MMOL/L Anion Gap 12 9 5-14 MMOL/L Blood Urea Nitrogen 13 12 7-18 MG/DL Creatinine 0.74 0.72 0.60-1.30 MG/DL Estimat Glomerular Filtration Rate 114 115 BUN/Creatinine Ratio 18 17 Glucose Level 226 H 175 H 70-105 MG/DL Calcium Level 8.9 9.0 8.5-10.1 MG/DL Corrected Calcium 9.1 8.5-10.1 MG/DL Magnesium Level 1.9 1.6-2.4 MG/DL Total Bilirubin 0.6 0.1-1.0 MG/DL Aspartate Amino Transf (AST/SGOT) 28 5-34 U/L Alanine Aminotransferase (ALT/SGPT) 24 0-55 U/L Alkaline Phosphatase 87 40-136 U/L Troponin I 0.030 H < 0.028 <0.028 NG/ML C-Reactive Protein High Sensitivity 1.47 H 0.00-0.50 MG/DL B-Type Natriuretic Peptide 404.7 H 342.3 H <100.0 PG/ML Total Protein 5.9 L 6.4-8.2 GM/DL Albumin 3.8 3.2-4.5 GM/DL Urine Opiates Screen NEGATIVE NEGATIVE Urine Oxycodone Screen NEGATIVE NEGATIVE Urine Methadone Screen NEGATIVE NEGATIVE Urine Propoxyphene Screen NEGATIVE NEGATIVE Urine Barbiturates Screen NEGATIVE NEGATIVE Ur Tricyclic Antidepressants Screen NEGATIVE NEGATIVE Urine Phencyclidine Screen NEGATIVE NEGATIVE Urine Amphetamines Screen NEGATIVE NEGATIVE Urine Methamphetamines Screen NEGATIVE NEGATIVE Urine Benzodiazepines Screen NEGATIVE NEGATIVE Urine Cocaine Screen NEGATIVE NEGATIVE Urine Cannabinoids Screen NEGATIVE NEGATIVE Triglycerides Level 85 <150 MG/DL Cholesterol Level 142 < 200 MG/DL LDL Cholesterol Direct 102 1-129 MG/DL VLDL Cholesterol 17 5-40 MG/DL HDL Cholesterol 29 L 40-60 MG/DL Physical Exam Physical Exam Vital Signs Vital Signs - First Documented 12/25/22 12/25/22 12/26/22 19:20 22:06 08:00 Temp 36.8 Pulse 102 Resp 22 B/P (MAP) 158/118 (131) Pulse Ox 94 O2 Delivery Room Air O2 Flow Rate 0.00 Capillary Refill : Height, Weight, BMI Height: '" Weight: lbs. oz. kg; 37.02 BMI Method: General Appearance: WD/WN, Mild Distress (Minimal with shortness of breath) HEENT: PERRL/EOMI, Normal ENT Inspection Neck: Normal Inspection; No JVD Respiratory: Lungs Clear, Normal Breath Sounds, No Accessory Muscle Use, No Respiratory Distress, Other (Good air movement with no wheezing and no crackles or rhonchi) Cardiovascular: No Murmur, Tachycardia (Mild, regular), Other (Trace lower extremity edema) Gastrointestinal: Non Tender, Soft; No Distended Extremity: Non Tender, Swelling (Trace lower extremity edema) Neurologic/Psychiatric: Alert, Oriented x3, Normal Mood/Affect Skin: Normal Color, Warm/Dry A/P-Cardiology Admission Diagnosis Shortness of breath Pneumonia Congestive heart failure, acute dilated left ventricular systolic dysfunction Diabetes mellitus Assessment/Plan Shortness of breath, orthopnea Elevated BNP 2D echo showed dilated left ventricle with severe diffuse left ventricular hypokinesia with ejection fraction 20 to 25%. Undetermined etiology We will start aggressive diuresis, beta-blockers and ARB and monitor tolerance and response Congestive heart failure, dilated left ventricular systolic dysfunction. 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 Receiving antibiotic and he is on his second round of antibiotic Consider adding steroids Diabetes mellitus, followed and managed by primary care physician Has been on metformin which will be held for the next 48 hours I will add Jardiance to his current treatment Hyperlipidemia, LDL 102, mild elevation Management will be based on the cardiac catheterization for diet control versus added statin Obesity, BMI 37, discussed weight loss Has increased risk of underlying sleep apnea, does not report snoring. Occasional alcohol use socially. JOSELIN ALCANTARA MD Dec 26, 2022 11:12
--- NOTE | 2022-12-26 11:13 | Cardiac Procedure Note-CS/ASA ---
Pre-Procedure Note Pre-Op Procedure Note Date of Available H&P: Dec 26, 2022 Date H&P Reviewed: Dec 26, 2022 Time H&P Reviewed: 11:12 History & Physical: H&P Reviewed, Patient Examed, No changes noted Pre-Operative Diagnosis: Congestive heart failure Moderate Sedation PreProcedure Time 11:12 ASA Score 3 Airway Lungs Heart ASA score ASA 1: a normal healthy patient ASA 2: a patient with a mild systemic disease (mid diabetes, controlled hypertension, obesity ASA 3: a patient with a severe systemic disease that limits activity (angina, COPD, prior Myocardial infarction) ASA 4: a patient with an incapacitating disease that is a constant threat to life (CHF, renal failure) ASA 5: a moribund patient not expected to survive 24 hrs. (ruptured aneurysm) ASA 6: a declared brain- patient whose organs are being harvested. For emergent operations, add the letter E after the classification Mallampati Classification Grade 3 Sedation Plan Analgesia, Amnesia, Plan communicated to team members, Discussed options with patient/fam, Discussed risks with patient/fam The patient is an appropriate candidate to undergo the planned procedure, sedation, and anesthesia. The patient immediately re-assessed prior to indication. JOSELIN ALCANTARA MD Dec 26, 2022 11:13
[2022-12-26] MEDS: NS IV 1000 ML 1,000 ML IV SCH ×4 (11:28→22:30)
[2022-12-26] MEDS ORDERED: fentaNYL INJ 100 MCG/2 ML AMP ONE (11:29)
[2022-12-26] MEDS ORDERED: NITRO DRIP 25000 MCG/D5W 250 ML IV ONE (11:30)
[2022-12-26] MEDS ORDERED: HEParin (CATH LAB) 2,000 ML IV ONE (11:30)
[2022-12-26] MEDS ORDERED: LIDOCAINE 1% INJ 20 ML VIAL ONE (11:30)
[2022-12-26] MEDS ORDERED: NS IV 1000 ML 0 ML ONE (11:30)
[2022-12-26] MEDS ORDERED: MIDAZOLAM 5 MG/5 ML (VERSED) VIAL ONE (11:30)
[2022-12-26] MEDS ORDERED: HEParin 1000 UNIT/ML (10ML VIAL) FOR BOLUS ONE (11:30)
[2022-12-26] MEDS ORDERED: VERAPAMIL 5 MG/2 ML (CALAN) VIAL IV ONE (11:31)
[2022-12-26 12:18] VITALS: BP 130/82
--- NOTE | 2022-12-26 12:30 | Cardiac Cath Report ---
Cardiac Cath Report Physician (s)/Resource Room Teacher (s) Physician JOSELIN ALCANTARA MD Pre-Procedure Diagnosis Pre-Procedure Diagnosis: Congestive heart failure Post-Procedure Note Procedure Start Date: Dec 26, 2022 Name of Procedure: Left heart catheterization Left ventriculogram Aortic arch angiogram Findings/Procedure Note PROCEDURE NOTE: 47-year-old gentleman admitted with congestive heart failure, acute left ventricular systolic dysfunction, dilated cardiomyopathy, cardiac catheterization was advised. After explaining the procedure to the patient, all pros and cons were explained, all questions were answered. The patient signed the consent and then he was placed in the cardiac catheterization laboratory. Groin was prepped in SL fashion local anesthesia was used. Sheath placed in the right radial artery, [place] catheter was advanced to the left ventricular cavity, pressure was measured, pullback LV to aorta was done, left ventriculogram was done, engage the right and left coronary system, patient has almost separate ostium of the LAD and circumflex artery required significant manipulation of the catheter. At the end of the procedure catheter was placed in the aortic arch and aortic arch angiogram was done. Left ventriculogram was done Aortic arch angiogram was done At the end of the procedure the sheath was removed. Vascular band was used FINDINGS: Hemodynamics LV 132/42, end-diastolic pressure 42 Aorta 127/101 mean of 115 ANATOMY: Left Main almost separate ostium of the LAD and circumflex artery Left Anterior Descending is moderate in size with less than 10% stenosis nonobstructive disease Left Circumflex is dominant artery moderate in size and has almost separate ostium from the LAD, very short left main, no significant obstructive disease Right Coronary Artery is moderate in size, codominant artery with no obstructive disease LV Gram was done showing dilated left ventricle with diffuse left ventricular hypokinesia ejection fraction 25% Aorta evaluation done with aortic arch angiogram showing normal aortic arch, no dissection, no aneurysm, normal origin of the brachiocephalic artery left carotid and left subclavian arteries Dominance codominant right coronary artery and circumflex artery CONCLUSION: No significant obstructive disease in the coronary system Almost separate ostium of the LAD and circumflex artery due to very short left main but no significant obstructive disease noted Dilated cardiomyopathy, nonischemic in nature, severe diffuse left ventricular hypokinesia with ejection fraction 25%, significantly elevated left ventricular end-diastolic pressure Normal aortic arch and great vessels of the neck DISCUSSION AND RECOMMENDATION: Patient was started on Lasix, adding Coreg, Entresto, Jardiance and aspirin Due to the dilated cardiomyopathy, nonischemic I am proceeding with a LifeVest evaluation Evaluate tickborne panels and TSH level Hold metformin for 48 hours Anesthesia Type: Conscious Sedation Estimated blood loss (mL): 10 ml Contrast Amount: 87 ml Total Radiation Dose: 664 mGy Post-Procedure Diagnosis Post-operative diagnosis: Dilated cardiomyopathy nonischemic congestive heart failure with left ventricular systolic dysfunction Diabetes mellitus Shortness of breath Pulmonary edema JOSELIN ALCANTARA MD Dec 26, 2022 12:30
[2022-12-26 12:40] VITALS: BP 125/86
[2022-12-26] MEDS: KCL 20 MEQ TAB (K-DUR) PO SCH (15:50)
[2022-12-26] MEDS: FUROSEMIDE 40 MG/4 ML INJ (LASIX) IVP SCH (15:50)
[2022-12-26 15:54] VITALS: BP 129/79
[2022-12-26 20:00] VITALS: BP 131/88
[2022-12-26] MEDS: SACUBITRIL/VALSARTAN 24/26 MG (ENTRESTO) TABLET PO SCH (21:14)
[2022-12-27] VITALS: BP 114/88
[2022-12-27 04:00] VITALS: BP 149/106
[2022-12-27 05:02] LABS: POTASSIUM 4.1 MMOL/L (3.6-5.0)
[2022-12-27 05:03] LABS: CALCIUM 8.8 MG/DL (8.5-10.1)
[2022-12-27 05:07] LABS: CREATININE SERUM 0.71 MG/DL (0.60-1.30)
[2022-12-27 05:09] LABS: MAGNESIUM 2.1 MG/DL (1.6-2.4)
--- NOTE | 2022-12-27 05:36 | Progress Note - Hospitalist ---
Subjective HPI/CC On Admission Date Seen by Provider: Dec 27, 2022 Time Seen by Provider: 08:30 CC: Dyspnea HPI: This is a 47yoWM with minimal PMH who presented to the ER 4 times in past few weeks with dyspnea so he was admitted and placed in observation and Dr Quintero saw him in consultation and evaluated and ECHO which revealed EF 25% and noted elevated troponin so he was brought to petroleum refinery laborer. [place] and [place] Citizen used to communicate with patient and his . Objective Exam Vital Signs Vital Signs Date Time Temp Pulse Resp B/P (MAP) Pulse Ox O2 Delivery O2 Flow Rate FiO2 12/27/22 12:22 35.8 87 15 98/70 (79) 12/27/22 08:23 95 Room Air 12/26/22 08:10 0.00 Capillary Refill : Less Than 3 Seconds Results/Procedures Lab Laboratory Tests 12/27/22 04:42 Patient resulted labs reviewed. DAVID HOLDER DO Dec 27, 2022 05:36
[2022-12-27] MEDS: FUROSEMIDE 40 MG/4 ML INJ (LASIX) IVP SCH (06:32)
[2022-12-27] MEDS: PANTOPRAZOLE 40 MG (PROTONIX) TAB PO SCH (06:32)
[2022-12-27] MEDS: CATHETER FLUSH 10 ML SYR IVP SCH (06:32)
[2022-12-27] MEDS: KCL 20 MEQ TAB (K-DUR) PO SCH (06:32)
[2022-12-27 07:34] VITALS: BP 114/78
[2022-12-27] MEDS: NS IV 1000 ML 1,000 ML IV SCH ×2 (07:49)
[2022-12-27] MEDS: SACUBITRIL/VALSARTAN 24/26 MG (ENTRESTO) TABLET PO SCH (08:17)
[2022-12-27] MEDS: AZITHROMYCIN 250 MG TAB (ZITHROMAX) PO SCH (08:17)
[2022-12-27] MEDS: AUGMENTIN 875 MG TAB (AMOXICILLIN/CLAVULANATE) PO SCH (08:17)
[2022-12-27] MEDS ORDERED: ASPIRIN E.C. 81 MG (ECOTRIN) TAB PO SCH (09:00)
[2022-12-27] MEDS ORDERED: EMPAGLIFLOZIN 10 MG TABLET (JARDIANCE) PO SCH (09:00)
--- NOTE | 2022-12-27 11:15 | Cardiology Progress Note ---
Subjective Date Seen by Provider: Dec 27, 2022 Time Seen by Provider: 11:12 Subjective/Events-last exam Patient was seen at bedside, laying down comfortably Reporting improvement in his shortness of breath. No chest pain was reported Review of Systems General: No Chills, No Night Sweats, No Fatigue, No Malaise, No Appetite, No Other HEENT: No Head Aches, No Visual Changes, No Eye Pain, No Ear Pain, No Dysphasia, No Sinus Congestion, No Post Nasal Drip, No Sore Throat, No Other Pulmonary: No Dyspnea, No Cough, No Pleuritic Chest Pain, No Other Cardiovascular: No: Chest Pain, Palpitations, Orthopnea, Paroxysmal Noc. D yspnea, Edema, Lt Headedness, Other Objective-Cardiology Exam Last Set of Vital Signs Vital Signs 12/26/22 12/27/22 12/27/22 08:10 07:34 08:23 Temp 36.0 Pulse 89 Resp 12 B/P (MAP) 114/78 (90) Pulse Ox 95 O2 Delivery Room Air O2 Flow Rate 0.00 I&O Intake and Output 12/27/22 00:00 Intake Total 840 ml Balance 840 ml Intake Oral 840 ml # Voids 4 General: Alert, Oriented X3, Cooperative HEENT: Atraumatic, PERRLA Neck: Supple, No JVD, No Thyromegaly Lungs: Clear to Auscultation, Normal Air Movement Heart: Regular Rate, Normal S1, Normal S2 Abdomen: Normal Bowel Sounds, Soft, No Tenderness, No Hepatosplenomegaly, No Masses Extremities: No Clubbing, No Cyanosis, No Edema, Normal Pulses, No Tenderness/Swelling Skin: No Rashes, No Breakdown, No Significant Lesion Neuro: Normal Gait, Normal Speech, Strength at 5/5 X4 Ext, Normal Tone, Sensation Intact Psych/Mental Status: Mental Status NL, Mood NL Results Lab Laboratory Tests 12/27/22 04:42 A/P-Cardiology Admission Diagnosis Shortness of breath Pneumonia Congestive heart failure, acute dilated left ventricular systolic dysfunction Diabetes mellitus Assessment/Plan Shortness of breath, orthopnea Reporting improvement. Continue to monitor Congestive heart failure, dilated left ventricular systolic dysfunction. Undetermined etiology 2D echo was done on December 26, 2022 with ejection fraction 20 to 25%. Nonischemic cardiomyopathy Started on Coreg, Entresto, Jardiance and Lasix TSH was normal, tickborne panel are pending LifeVest is scheduled, probably will receive it as an outpatient Cardiac catheterization was done on December 26, 2022 showing nonobstructive c oronary disease. 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 Receiving antibiotic and he is on his second round of antibiotic Feeling better Diabetes mellitus, followed and managed by primary care physician Has been on metformin which will be held for the next 48 hours Jardiance was added Hold metformin for 48 hours postcardiac catheterization Hyperlipidemia, LDL 102, mild elevation Diet control is recommended Obesity, BMI 37, discussed weight loss Has increased risk of underlying sleep apnea, does not report snoring. Occasional alcohol use socially. JOSELIN ALCANTARA MD Dec 27, 2022 11:15
[2022-12-27] MEDS ORDERED: EMPA10TA PO (11:17)
[2022-12-27] MEDS ORDERED: SACU1TAB2 PO (11:17)
[2022-12-27] MEDS ORDERED: ASPI-1238 PO (11:17)
[2022-12-27] MEDS ORDERED: METF-478 PO (11:17)
[2022-12-27] MEDS ORDERED: POTA-53 PO (11:17)
[2022-12-27] MEDS ORDERED: FURO-124 PO (11:17)
[2022-12-27] MEDS ORDERED: CARV3.122 PO (11:17)
--- NOTE | 2022-12-27 11:18 | Discharge Inst-Post CATH ---
Discharge Inst-CATH/EP Problems Reviewed?: Yes Post Cardiac Cath/EP D/C Inst Follow Up/Plan Hold metformin for [address] Quintero's office in 2 weeks <b>CARDIAC CATH/EP PROCEDURE DISCHARGE INSTRUCTIONS</b> ACTIVITY * Go Home directly and rest. * Limit activity of the leg (or wrist if it was used) for 7 days including aerobics, swimming, jogging, bicycling, etc. * Restrict stair-climbing for 7 days if possible, if not, climb up with your non-cath leg, then bring together on the same step. * Avoid lifting, pushing, pulling or excessive movement of the affected extremity for 7 days. * Customary sexual activity may be resumed after 2 days-use caution not to use a position that strains or causes pain to the affected extremity. * No driving for 24 hours. * NO SMOKING. * Avoid straining for bowel movements for 7 days. * Gentle walking on level ground is allowed. * Returning to work will depend on the type of procedure and the results. Your doctor will discuss this with you. CALL YOUR DOCTOR FOR ANY OF THE FOLLOWING: *If bleeding from the puncture site occurs- Apply gentle pressure to site with clean cloth and call your doctor or EMS. * If a knot or lump forms under the skin, increases in size, or causes pain. * If bruising appears to be worsening or moving further down your leg instead of disappearing. * Temperature above 101 F. CARE OF YOUR GROIN INCISION; * Bruising or purple discoloration of the skin near the puncture site is common. * You may shower only, no bathtub bathing for 5 days. Be careful to avoid slipping as your leg may feel stiff. * If a closure device was used on your femoral artery, please see the attached guide regarding care of the device and your leg. * Leave dressing on FOR 24 hours. CARE OF YOUR WRIST INCISION; * Bruising or purple discoloration of the skin near the puncture site is common. * You may shower. * DO NOT submerge wrist. * Leave dressing on FOR 24 hours. JOSELIN QUINTERO MD Dec 27, 2022 11:18
[2022-12-27 12:22] VITALS: BP 98/70
--- NOTE | 2022-12-27 12:33 | Discharge Summary ---
Discharge Summary Hospital Course Was the Problem List Reviewed?: Yes Problems/Dx: (1) Cardiomyopathy Hospital Course Date of Admission: Dec 25, 2022 at 21:31 Admission Diagnosis : Family Physician/Provider: Mel Elliott Aprn Date of Discharge: 12/27/22 Discharge Diagnosis: [ ] Hospital Course: Short course after admitted for dyspnea he underwent cardiac evaluation after ECHO revealed EF 25%. cath revealed no ischemic evidence and was placed on CHF meds and will need lifevest as outpatient. Labs and Pending Lab Test: Laboratory Tests 12/26/22 13:15: Lyme Disease Screen IgG & IgM Ab [Pending], Lyme Antibody Interpretation [Pending], Ehrlichia chaffeensis IgG Antibody [Pending], Ehrlichia chaffeensis IgM Antibody [Pending], Spotted Fever Group IgG Antibody [Pending], Spotted Fever Group IgM Antibody [Pending], [place] Antibody [Pending] 12/27/22 04:42: Sodium Level 139, Potassium Level 4.1, Chloride Level 107, Carbon Dioxide Level 21, Anion Gap 11, Blood Urea Nitrogen 16, Creatinine 0.71, Estimat Glomerular Filtration Rate 115, BUN/Creatinine Ratio 23, Glucose Level 197H, Calcium Level 8.8, Magnesium Level 2.1, Thyroid Stimulating Hormone (TSH) 1.88 Microbiology 12/26/22 MRSA Screen - Final, Complete MRSA not isolated Home Meds Active K-Tab ER (Potassium Chloride) 20 Meq Tablet.er 20 Meq PO DAILY Lasix (Furosemide) 40 Mg Tablet 40 Mg PO DAILY Jardiance (Empagliflozin) 10 Mg Tablet 10 Mg PO DAILY Aspirin EC (Aspirin) 81 Mg Tablet.dr 81 Mg PO DAILY Entresto 24 mg-26 mg Tablet (Sacubitril/Valsartan) 24 Mg-26 Mg Tablet 1 Tab PO BID Carvedilol 3.125 Mg Tablet 3.125 Mg PO BID Metformin HCl ER (Metformin HCl) 500 Mg Tab.er.24 500 Mg PO DAILY Hold metformin for 48 hours Ventolin Hfa (Albuterol Sulfate) 1 Puff Puff 2 Puff INH Q4H 1 PUFF = 90 MCG Amox Tr-K Clv 875-125 mg Tab (Amoxicillin/Potassium Clav) 875 Mg-125 Mg Tablet 1 Each PO BID 7 Days Azithromycin 250 Mg Tablet 250 Mg PO DAILY Assessment/Pt Instructions Cardiology as scheduled Discharge Planning: <30 minutes discharge planning Discharge Physical Examination Vital Signs Vital Signs Date Time Temp Pulse Resp B/P (MAP) Pulse Ox O2 Delivery O2 Flow Rate FiO2 12/27/22 12:22 35.8 87 15 98/70 (79) 12/27/22 08:23 95 Room Air 12/26/22 08:10 0.00 General Appearance: No Apparent Distress, WD/WN, Chronically ill Allergies: Coded Allergies: No Known Drug Allergies (Unverified , 12/09/22) Discharge Summary Date of Admission Dec 25, 2022 at 21:31 Date of Discharge Discharge Date: Dec 27, 2022 Admission Diagnosis Assessment: Dyspnea Elevated troponin Former smoker Obesity Plan: Cath DAVID Layne DO Dec 27, 2022 12:33
== END 2022-12-27 12:32 | disposition home or self-care (01) ==
LOC: EDUNIT# 19:16 → ER 19:17 → 4TH 21:31 → UNDOADMOB 21:31 → 4TH 22:36 → CSD 12-26 12:44 → UNDODISOB 12-27 12:32
PROVIDERS: ADMIT Internal Medicine; ATTEND Internal Medicine
DX: I50.21 Acute systolic (congestive) heart failure (principal); I42.8 Other cardiomyopathies; I42.0 Dilated cardiomyopathy; J81.1 Chronic pulmonary edema; J18.9 Pneumonia, unspecified organism; R77.8 Other specified abnormalities of plasma proteins; R06.00 Dyspnea, unspecified; E66.9 Obesity, unspecified; E11.9 Type 2 diabetes mellitus without complications; E78.5 Hyperlipidemia, unspecified; Z79.84 Long term (current) use of oral hypoglycemic drugs; Z68.37 Body mass index [BMI] 37.0-37.9, adult; Z79.899 Other long term (current) drug therapy; Z87.891 Personal history of nicotine dependence
CPT/HCPCS: 71046 ×2; 76705; 80048 ×2; 80053; 80061; 80306; 83735 ×2; 83880 ×2; 84443; 84484 ×2; 85025 ×2; 85610; 85652; 85730; 86141; 86618; 86666 ×2; 86668; 86757 ×2; 87081; 94760; 99284; C8929; 36221; 36415; 93005; 93306; 93458; 96376; G0378

== ENCOUNTER → 2023-05-17 | Outpatient (CLI) | payer OTHER ==
[~2023-05-17] MED LIST changes: +ASPI-1238 PO; +CARV3.122 PO; +EMPA10TA PO; +FURO-124 PO; +METF-478 PO; +POTA-53 PO; +SACU1TAB2 PO
== END ==
LOC: CARD 09:44
PROVIDERS: ATTEND Physician Assistant
DX: I11.9 Hypertensive heart disease without heart failure (principal); I25.10 Atherosclerotic heart disease of native coronary artery without angina pectoris
CPT/HCPCS: 93306

== ENCOUNTER → 2023-07-13 | Outpatient (CLI) | payer OTHER | LOC: CANPRECLI → CARD 13:26 | PROVIDERS: ATTEND Internal Medicine Cardiovascular Disease | DX: I34.0 Nonrheumatic mitral (valve) insufficiency (principal); I25.10 Atherosclerotic heart disease of native coronary artery without angina pectoris; I11.9 Hypertensive heart disease without heart failure | CPT/HCPCS: 93306 ==